=== PATIENT | male | born 1950 | race Two or more races ===

== ENCOUNTER 2016-09-22 18:19 | Inpatient (IN) | payer MEDICARE ==
[~2016-09-22] VITALS: Ht 165.1 cm; Wt 48.1 kg
[2016-09-22] MEDS ORDERED: COMBAER6 INH (18:46)
[2016-09-22 20:26] LABS: BASO % 0.4 % (0.0-1.0); EOS # 0.1 K/mm3 (0.0-0.50); EOS % 2.2 % (0.0-3.0); LARGE UNSTAINED CELL # 0.1 K/mm3 (0.0-0.4); LARGE UNSTAINED CELL % 0.7 % (0.0-4.0); LYMPH # 1.5 K/mm3 (1.5-4.5); LYMPH % 21.9 % (24.0-44.0); MEAN CORPUSCULAR HEMOGLOBIN 33.8 pg (27.0-33.0); MEAN CORPUSCULAR HGB CONC 33.3 g/dl (32.0-36.5); MEAN CORPUSCULAR VOLUME 101.4 fl (80.0-96.0); MONO # 0.3 K/mm3 (0.0-0.8); MONO % 3.9 % (0.0-5.0); NEUTROPHILS # 4.7 K/mm3 (1.8-7.7); NEUTROPHILS % 70.9 % (36.0-66.0); PLATELET COUNT, AUTOMATED 146 k/mm3 (150-450); RED CELL DISTRIBUTION WIDTH 12.4 % (11.5-14.5); WHITE BLOOD COUNT 6.6 K/mm3 (4.0-10.0)
[2016-09-22 20:36] LABS: ALBUMIN 2.4 GM/DL (3.2-5.2); ALKALINE PHOSPHATASE 131 U/L (45-117); ALT/SGPT 24 U/L (12-78); ANION GAP 11 MEQ/L (8-16); AST/SGOT 69 U/L (15-37); BILIRUBIN,DIRECT 0.1 MG/DL (0.0-0.2); BILIRUBIN,TOTAL 0.6 MG/DL (0.2-1.0); BLOOD UREA NITROGEN 5 MG/DL (7-18); CARBON DIOXIDE LEVEL 24 MEQ/L (21-32); CHLORIDE LEVEL 100 MEQ/L (98-107); CREATININE FOR GFR 0.65 MG/DL (0.70-1.30); GLOMERULAR FILTRATION RATE > 60.0 (>49); GLUCOSE, FASTING 111 MG/DL (80-110); POTASSIUM SERUM 3.7 MEQ/L (3.5-5.1); SODIUM LEVEL 135 MEQ/L (136-145); TOTAL PROTEIN 6.4 GM/DL (6.4-8.2)
--- NOTE | 2016-09-22 21:00 | REPUSA ---
Clinical history: Pain, swelling. Findings: The common femoral, superficial femoral, popliteal, and other deep venous structures compre ss normally and demonstrate normal color Doppler flow. Normal venous waveforms with augmentation are seen. Impression: No evidence of deep vein thrombosis in the femoral popliteal venous system.
[2016-09-22] MEDS ORDERED: FUROSEMIDE 20 MG/2 ML VIAL (J1940) IV ONE (23:15)
[2016-09-22] MEDS ORDERED: ISOVUE-370 76% 100ML VIAL (Q9967) As Ordered ONE (23:33)
--- NOTE | 2016-09-22 23:50 | REPUSA ---
CT of the chest with contrast Clinical statement: Pleural effusions. Technique: Multiple axial CT images were obtained with 5 mm cuts through the chest after administrati on of nonionic intravenous contrast. Coronal and sagittal reconstructions were also obtained. Comparison: None. Findings: There is no thoracic lymphadenopathy. The visualized portions of the thyroid gland is unrem arkable. There are no pericardial or pleural effusions. There is moderate bilateral emphysema. Limite d imaging of the upper abdomen does not demonstrate any acute abnormalities. There is a large amount of abdominal ascites. There are no suspicious osseous lesions. Previous old healed right-sided rib fr actures are noted at multiple levels. Mild anterior wedging is noted at T11 and T12. Impression: 1. Moderately severe emphysema and COPD. No acute infiltrates or effusions. 2. Large amount of abdominal ascites. 3. Mild chronic anterior compression abnormalities of T11 and T12.
[2016-09-23] MEDS ORDERED: ACETAMINOPHEN TAB 650MG DOSE (2X325MG) PO PRN (01:45)
[2016-09-23 02:30] VITALS: BP 130/79
[2016-09-23] MEDS: CLINDAMYCIN 300 MG in APPROPRIATE DILUENT 1 EA IV SCH ×3 (03:44→20:55)
[2016-09-23 04:00] VITALS: BP 127/74
[2016-09-23 07:02] LABS: WHITE BLOOD COUNT 6.8 K/mm3 (4.0-10.0)
[2016-09-23 07:03] LABS: MEAN CORPUSCULAR HGB CONC 33.8 g/dl (32.0-36.5); MEAN CORPUSCULAR VOLUME 100.8 fl (80.0-96.0); PLATELET COUNT, AUTOMATED 88 k/mm3 (150-450); RED CELL DISTRIBUTION WIDTH 12.1 % (11.5-14.5)
[2016-09-23 07:04] LABS: BASO % 0.3 % (0.0-1.0); EOS # 0.1 K/mm3 (0.0-0.50); EOS % 1.9 % (0.0-3.0); LARGE UNSTAINED CELL # 0.1 K/mm3 (0.0-0.4); LYMPH # 1.5 K/mm3 (1.5-4.5); LYMPH % 22.4 % (24.0-44.0); MONO # 0.3 K/mm3 (0.0-0.8); MONO % 4.8 % (0.0-5.0); NEUTROPHILS # 4.8 K/mm3 (1.8-7.7); NEUTROPHILS % 69.6 % (36.0-66.0)
[2016-09-23 07:05] LABS: ADD MORPHOLOGY? NO; DIFF SLIDE NUMBER 112
[2016-09-23 07:25] LABS: ALBUMIN 2.4 GM/DL (3.2-5.2); ALBUMIN/GLOBULIN RATIO 0.52 (1.00-1.93); ALKALINE PHOSPHATASE 136 U/L (45-117); ALT/SGPT 23 U/L (12-78); ANION GAP 10 MEQ/L (8-16); AST/SGOT 63 U/L (15-37); BILIRUBIN,TOTAL 1.1 MG/DL (0.2-1.0); BLOOD UREA NITROGEN 4 MG/DL (7-18); CALCIUM LEVEL 7.3 MG/DL (8.8-10.2); CARBON DIOXIDE LEVEL 24 MEQ/L (21-32); CHLORIDE LEVEL 101 MEQ/L (98-107); CREATININE FOR GFR 0.61 MG/DL (0.70-1.30); GLOMERULAR FILTRATION RATE > 60.0 (>49); GLUCOSE, FASTING 117 MG/DL (80-110); POTASSIUM SERUM 4.6 MEQ/L (3.5-5.1); SODIUM LEVEL 135 MEQ/L (136-145)
--- NOTE | 2016-09-23 07:27 | REP ---
PA and lateral chest: There are no comparisons. There are multiple old healed rib fractures bilaterally. There is slight effacement of the right costophrenic angle. This could be a small pleural effusion or pleural adhesion. There is a small focal density adjacent to the cardiac apex and which could represent acute infiltrate or chronic scarring inferiorly in the left lung. Cardiac size is normal. The karla and mediastinum are unremarkable. Bony thorax demonstrates diffuse demineralization and compression deformities of three lower thoracic vertebral bodies. In the absence of comparison studies I cannot determine if these are acute or chronic. Conroy on symptomatology is recommended. Signed by Familia Resendiz MD 09/23/2016 07:18 A
[2016-09-23] MEDS: IPRATROPIUM 0.5MG/ALBUTEROL 2.5MG INH SOL UD 3ML (DUONEB)(J7620) NEB SCH ×2 (07:47→12:00)
[2016-09-23] MEDS ORDERED: FUROSEMIDE 40 MG TAB PO SCH (09:00)
[2016-09-23] MEDS ORDERED: ENOXAPARIN 40 MG/0.4 ML SYRINGE (J1650) SC SCH (09:00)
[2016-09-23] MEDS: PANTOPRAZOLE 40MG TAB (PROTONIX) PO SCH (09:34)
[2016-09-23] MEDS: POTASSIUM CHLORIDE 10 MEQ SR TABLET PO SCH (09:34)
[2016-09-23] MEDS: FUROSEMIDE 40 MG/4 ML VIAL (J1940) IV SCH (09:34)
--- NOTE | 2016-09-23 09:54 | REP ---
Abdominal right upper quadrant ultrasound: There is no Rodríguez's sign to transducer pressure. There is no cholelithiasis, gallbladder wall thickening or pericholecystic fluid. There is no intrahepatic or extrahepatic biliary duct dilatation. The common duct measures 5.8 mm in diameter. The hepatic parenchyma is mildly echogenic compatible with hepato steatosis. There are no focal hepatic masses. The pancreas is obscured by bowel. There is no right renal hydronephrosis, calculus, mass or cyst. Right kidney is normal size measuring 9.3 cm craniocaudad length. Minimal ascites is noted adjacent to the liver. Scanning is technically difficult because of limited ultrasonographic windows. Impression: Small volume of ascites surrounding the liver. Hepato steatosis. The pancreas is obscured. Otherwise, negative abdominal right upper quadrant ultrasound. Signed by Familia Resendiz MD 09/23/2016 09:46 A
[2016-09-23 10:28] LABS: INR 1.03
[2016-09-23 12:00] VITALS: BP 120/64
[2016-09-23] MEDS ORDERED: COMBIVENT RESPIMAT INH PRN (13:00)
--- NOTE | 2016-09-23 13:18 | REP ---
LIMITED ABDOMINAL ULTRASOUND: Limited abdominal ultrasound is performed to evaluate for ascites. There is minimal perihepatic fluid present. No other significant ascites fluid is seen in any of the four quadrants of the abdomen. Paracentesis is not performed as there is not sufficient fluid for drainage. Signed by Familia Regan MD 09/23/2016 05:02 P
[2016-09-23 15:20] VITALS: BP 141/82
--- NOTE | 2016-09-23 17:41 | ECGEPIP ---
Stationary ECG Study [facility] - ED Test Date: 2016-09-22 Pat Name: GLYNN OLIVER Department: Room: [place] [address] Gender: M Master Carpenter: BotelloB: [id number] Requested By: YOGI Person Order Number: [id number] Reading MD: Susan Mcfadden Measurements Intervals [place] Rate: 94 P: 83 ID: [id number] QRS: -11 QRSD: 62 T: 11 QT: 355 QTc: 445 Interpretive Statements SINUS RHYTHM WITH FIRST DEGREE AV BLOCK LOW QRS VOLTAGE IN EXTREMITY LEADS ANTEROSEPTAL MYOCARDIAL INFARCTION, PROBABLY OLD PROLONGED QTC NO OLD ECG FOR COMPARISON Electronically Signed On 09-23-2016 17:40:45 EDT by Susan Mcfadden
[2016-09-23 19:34] VITALS: BP 117/61
--- NOTE | 2016-09-23 20:30 | IPN ---
DATE: 09/23/2016 Patient seen and examined. Overnight reported bilateral lower extremity pain and swelling, the same as before. Denies any chest pain, pressure, discomfort, fevers or chills. No nausea or vomiting. VITAL SIGNS: Temperature 99.1, pulse 190, respirations 18, blood pressure 117/61, pulse oximetry 97% on room air. LABORATORY: WBC 6.8, hemoglobin and hematocrit (H and H) 14/41.9, platelets 88. Sodium 135, potassium 4.6, chloride 101, bicarbonate 24, BUN 4, creatinine 0.6. Cardiac enzymes are negative times two. C-reactive protein 1.4. PHYSICAL EXAMINATION: GENERAL: Patient alert and oriented times three. No acute distress. HEENT: Normocephalic, atraumatic. PULMONARY: Bilateral clear to auscultation. ABDOMEN: Soft, nontender. Positive bowel sounds. EXTREMITIES: Bilateral lower extremities 1+ edema with erythema and pain, scaly skin, with venous stasis skin changes. ASSESSMENT AND PLAN: This is a 66-year-old male patient with underlying medical history of alcohol abuse, chronic obstructive pulmonary disease (COPD), presented with bilateral lower extremity swelling and pain with redness. PROBLEMS: 1. Bilateral lower extremity swelling and pain. Possible etiology includes venous stasis, congestive heart failure (CHF) with possible superimposed cellulitis. Clindamycin, c-reactive protein. Follow up cultures. Diuresis with Lasix. Echocardiogram. Follow right heart pressure. Echocardiogram. Telemetry. Doppler negative for deep venous thrombosis (DVT). 2. Chronic obstructive pulmonary disease (COPD). Patient not having any wheeze. Continue home medication. 3. Acute congestive heart failure (CHF) exacerbation. DATE: 09/23/2016 Patient seen and examined. Overnight reported bilateral lower extremity pain and swelling, the same as before. Denies any chest pain, pressure, discomfort, fevers or chills. No nausea or vomiting. VITAL SIGNS: Temperature 99.1, pulse 190, respirations 18, blood pressure 117/61, pulse oximetry 97% on room air. LABORATORY: WBC 6.8, hemoglobin and hematocrit (H and H) 14/41.9, platelets 88. Sodium 135, potassium 4.6, chloride 101, bicarbonate 24, BUN 4, creatinine 0.6. Cardiac enzymes are negative times two. C-reactive protein 1.4. PHYSICAL EXAMINATION: GENERAL: Patient alert and oriented times three. No acute distress. HEENT: Normocephalic, atraumatic. PULMONARY: Bilateral clear to auscultation. ABDOMEN: Soft, nontender. Positive bowel sounds. EXTREMITIES: Bilateral lower extremities 1+ edema with erythema and pain, scaly skin, with venous stasis skin changes. ASSESSMENT AND PLAN: This is a 66-year-old male patient with underlying medical history of alcohol abuse, chronic obstructive pulmonary disease (COPD), presented with bilateral lower extremity swelling and pain with redness. PROBLEMS: 1. Bilateral lower extremity swelling and pain. Possible etiology includes venous stasis, congestive heart failure (CHF) with possible superimposed cellulitis. Clindamycin, c-reactive protein. Follow up cultures. Diuresis with Lasix. Echocardiogram. Follow right heart pressure. Echocardiogram. Telemetry. Doppler negative for deep venous thrombosis (DVT). 2. Chronic obstructive pulmonary disease (COPD). Patient not having any wheeze. Continue home medication. 3. Acute congestive heart failure (CHF) exacerbation. Unknown ejection fraction. Follow up echocardiograms. Lasix. Telemetry. 4. Alcohol abuse. Monitor for withdrawal. Patient has no signs of withdrawal at this time. Will continue to monitor. 5. Small ascites. Unable to tap. Possibly secondary to alcoholic liver disease. Follow up hepatitis panel. INR appreciated. Counseling provided. 6. Gastroesophageal reflux disease (GERD). Continue proton pump inhibitor (PPI). 7. Deep venous thrombosis (DVT) prophylaxis. Heparin subcutaneously. 8. Thrombocytopenia secondary to underlying liver condition. DISPOSITION: Pending further workup, echocardiogram, clinical improvement.. Follow up echocardiograms. Lasix. Telemetry. 4. Alcohol abuse. Monitor for withdrawal. Patient has no signs of withdrawal at this time. Will continue to monitor. 5. Small ascites. Unable to tap. Possibly secondary to alcoholic liver disease. Follow up hepatitis panel. INR appreciated. Counseling provided. 6. Gastroesophageal reflux disease (GERD). Continue proton pump inhibitor (PPI). 7. Deep venous thrombosis (DVT) prophylaxis. Heparin subcutaneously. 8. Thrombocytopenia secondary to underlying liver condition. DISPOSITION: Pending further workup, echocardiogram, clinical improvement.
[2016-09-23] MEDS: HEPARIN SOD (PORCINE) 5000 UNITS/ML VIAL SQ SCH (21:00)
--- NOTE | 2016-09-23 22:33 | HPE ---
DATE OF ADMISSION: 09/22/2016 CHIEF COMPLAINT: Leg swelling. PRIMARY CARE PROVIDER: He had one in [place], her name was Dr. Delphine Ross. He has currently moved up here to be closer to his family. He has not established with a primary care provider. He went to the urgent care in [facility] today for significant swelling in both his legs and they advised him to go to the emergency room. Upon arrival, his temperature was 99.4, pulse was 105, respiratory rate was 16, blood pressure was 114/71, pulse oximetry was 98% on room air. Laboratory studies were done, sodium was slightly low at 135, potassium 3.7, chloride 100, CO2 24, BUN was 5, creatinine was 0.65, non-fasting glucose was 111, calcium was 7.0, AST was 69, ALT was 24, CPK was 94, troponin was less than 0.02, BNP was 112. Vascular ultrasound was done that showed no evidence of deep vein thrombosis in the femoral popliteal system. He had a chest xray done which showed multiple old healed rib fractures bilaterally, slight effacement of the right costophrenic angle, could be a small pleural effusion or adhesion, cardiac size was normal. He had a chest CT done which showed moderately severe emphysema and chronic obstructive pulmonary disease (COPD), no acute infiltrates or effusion, large amount of abdominal ascites, mild chronic anterior compression abnormalities of T11 and T12. In the emergency room, he received 20 mg of IV Lasix for the edema. Assessment was done. He had bilateral lower extremity edema and redness, swelling bilateral feet, lower legs to just below the knee, no open areas were noted, they were extremely warm to touch. Patient will be admitted for bilateral lower extremity edema, cellulitis, diastolic congestive heart failure (CHF). ALLERGIES: No known allergies. SOCIAL HISTORY: He is single. He is currently up staying with his daughter. Ethyl alcohol (EtOH): He drinks at least two beers per day. He smokes one pack of cigarettes per day. Recreational drug use: None. PAST MEDICAL HISTORY: COPD. PAST SURGICAL HISTORY: Repaired finger fracture of the right hand. HOME MEDICATIONS: - Combivent Respimat one inhalation four times a day as needed for shortness of breath REVIEW OF SYSTEMS: Other than the chronic shortness of breath and leg swelling, which he says he has had for at least six months but continues to get worse and more red, he had no further complaints. PHYSICAL EXAMINATION: 66-year-old cooperative male in no acute distress. Height 65 inches, weight 50 kg, body mass index (BMI) 18.3. The patient was alert and oriented times three. Pupils equal and reactive to light. Extraocular movements intact. Cornea and sclerae clear. Conjunctivae is normal. No facial asymmetry. Pharynx, tongue, gums pink and moist. Tongue is midline. NECK: Supple without lymphadenopathy. No thyromegaly. No goiter. Carotids 2+ without bruit. Jugular venous pressure at clavicle at 60 degrees. CHEST: Decreased breath sounds. No wheeze or retraction. HEART: Regular. ABDOMEN: Benign. Bowel sounds positive. GENITOURINARY/RECTAL: Not done. EXTREMITIES: Show bilateral lower extremity edema from just below the knee all the way through his feet. Peripheral pulses equal and palpable bilaterally. Skin is warm and dry. IMPRESSION/PLAN: Bilateral lower extremity cellulitis. Mild diastolic congestive heart failure (CHF). Admit to the medical floor. IV antibiotics. Diuretics. Further workup on the abdominal ascites. Patient will be admitted as inpatient status. Will require at least two midnights. Will start IV clindamycin and IV Lasix. MTDD
[2016-09-23 23:59] VITALS: BP 115/63
[2016-09-24 04:54] VITALS: BP 111/61
[2016-09-24] MEDS: CLINDAMYCIN 300 MG in APPROPRIATE DILUENT 1 EA IV SCH ×3 (05:05→20:29)
[2016-09-24 05:30] LABS: ALBUMIN 1.8 GM/DL (3.2-5.2); ALBUMIN/GLOBULIN RATIO 0.46 (1.00-1.93); ALKALINE PHOSPHATASE 99 U/L (45-117); ALT/SGPT 19 U/L (12-78); ANION GAP 8 MEQ/L (8-16); AST/SGOT 42 U/L (15-37); BILIRUBIN,DIRECT 0.2 MG/DL (0.0-0.2); BILIRUBIN,TOTAL 0.7 MG/DL (0.2-1.0); BLOOD UREA NITROGEN 4 MG/DL (7-18); CALCIUM LEVEL 7.1 MG/DL (8.8-10.2); CARBON DIOXIDE LEVEL 26 MEQ/L (21-32); CHLORIDE LEVEL 103 MEQ/L (98-107); CREATININE FOR GFR 0.54 MG/DL (0.70-1.30); GLOMERULAR FILTRATION RATE > 60.0 (>49); GLUCOSE, FASTING 90 MG/DL (80-110); MAGNESIUM LEVEL 1.3 MG/DL (1.8-2.4); POTASSIUM SERUM 3.3 MEQ/L (3.5-5.1); SODIUM LEVEL 137 MEQ/L (136-145); TOTAL PROTEIN 5.7 GM/DL (6.4-8.2)
[2016-09-24] MEDS ORDERED: POTASSIUM CHLORIDE 10 MEQ SR TABLET PO ONE (07:00)
[2016-09-24 08:00] VITALS: BP 119/65
[2016-09-24] MEDS: PANTOPRAZOLE 40MG TAB (PROTONIX) PO SCH (08:52)
[2016-09-24] MEDS: MAG SULF 1GM/100ML (MAG RUN) 1 GM in APPROPRIATE DILUENT 1 EA IV SCH ×2 (08:54→10:02)
[2016-09-24] MEDS: HEPARIN SOD (PORCINE) 5000 UNITS/ML VIAL SQ SCH ×2 (08:55→20:29)
[2016-09-24] MEDS: FUROSEMIDE 40 MG/4 ML VIAL (J1940) IV SCH (08:55)
[2016-09-24] MEDS: POTASSIUM CHLORIDE 10 MEQ SR TABLET PO SCH (10:01)
[2016-09-24 12:00] VITALS: BP 113/68
[2016-09-24 16:00] VITALS: BP 111/65
--- NOTE | 2016-09-24 16:56 | IPNPDOC ---
Subjective Date Seen The patient was seen on 09/24/16. Subjective Chief Complaint/HPI The patient is a 66-year-old male admitted with a reason for visit of Diastolic Chf, Bilat Lower Leg Cellulitis. Events since last encounter no acute events overnight, denied cp, abd pain, n/v/diarrhea. Reported LE swelling improved. General: Denies: Chills, Fatigue Constitutional: Denies: Chills, Fever, Malaise Eyes: Denies: Pain, Vision change Skin: Reports: Rash, Breakdown Pulmonary: Denies: Dyspnea, Cough Cardiovascular: Denies: Chest Pain, Palpitations Gastrointestinal: Denies: Nausea, Vomiting, Abdominal Pain, Diarrhea, Constipation Objective Physical Examination General Exam: Positive: Alert, Cooperative, No Acute Distress Eye Exam: Positive: PERRLA, EOMI Neck Exam: Positive: Supple Chest Exam: Positive: Clear to auscultation, Normal air movement Heart Exam: Positive: Rate Normal, Normal S1, Normal S2, Negative: Murmurs Abdomen Exam: Positive: Normal bowel sounds, Soft, Negative: Tenderness Extremity Exam: Positive: Edema (1+ b/l Le with erythema) Assessment /Plan Assessment 66 M h/o of heavy ETOH , COPD, a/w chf unknow EF and cellulitis Problems (1) Bilateral leg edema Problem Text: possible 2/2 to venous statasis vs CHF exacerbation US neg for DVT strict I and O leg elevation lasix, TTE, (2) CHF (congestive heart failure) Problem Text: new CHF ekg tele enzymes negx2 I and O daily weight lasix tte to find EF, likely diastolic (3) Ascites Problem Text: 2/2 to cirrhosis 2/2 to ETOH vs Hep C unable to tap, US abd appreciated (4) Steatosis of liver Problem Text: ETOH cessation counseling providerd hepatitis panel, US abd appreciated INR done (5) GERD (gastroesophageal reflux disease) Problem Text: ppi (6) ETOH abuse Problem Text: folic, thaimine, MVI counseling, monitor for withdrawal (7) Hepatitis C Problem Text: f/u RNA for confirmation outpatient f/u with ID for treatment (8) Thrombocytopenia Problem Text: 2/2 to liver disease con't monitor (9) Bilateral lower leg cellulitis Problem Text: f/u culture c/w clindamycin Plan/VTE VTE Prophylaxis Ordered?: Yes (heparin SQ) Disposition pending TTE, PT and clinical improvement VS, I&O, 24H, Hector Vital Signs/I&O Vital Signs Date Time Temp Pulse Resp B/P (MAP) Pulse Ox O2 Delivery O2 Flow Rate FiO2 09/24/16 16:12 Room Air 09/24/16 12:00 98.7 92 20 113/68 (83) 96 I&O- Last 24 Hours up to 6 AM 09/24/16 05:59 Intake Total 200 ml Output Total 50 ml Balance 150 ml Laboratory Data 24H LABS Laboratory Tests 2 09/24/16 05:01: Anion Gap 8, Glomerular Filtration Rate > 60.0, Calcium Level 7.1L, Magnesium Level 1.3L, Aspartate Amino Transf (AST/SGOT) 42H, Alanine Aminotransferase (ALT /SGPT) 19, Alkaline Phosphatase 99, Total Bilirubin 0.7, Direct Bilirubin 0.2, C -Reactive Protein, Quantitative 1.58H, Total Protein 5.7L, Albumin 1.8#L, Albumin/Globulin Ratio 0.46L CBC/BMP Laboratory Tests 09/24/16 05:01 Microbiology Microbiology 09/23/16 Blood Culture, Received Pending 09/23/16 Blood Culture, Received Pending AYESHA PERRY MD Sep 24, 2016 16:56
[2016-09-24] MEDS: LACTOBACILLUS ACIDOPHILUS CAP (BACID) PO SCH (17:33)
[2016-09-24] MEDS: MULTIVITAMINS/MINERALS THERAP 1 TAB PO SCH (17:34)
[2016-09-24] MEDS: THIAMINE 100 MG TAB PO SCH (17:34)
[2016-09-24] MEDS: FOLIC ACID 1 MG TAB PO SCH (17:34)
[2016-09-24 20:00] VITALS: BP 126/64
[2016-09-24 23:59] VITALS: BP 93/51
[2016-09-25] MEDS: CLINDAMYCIN 300 MG in APPROPRIATE DILUENT 1 EA IV SCH ×3 (03:36→12:51)
[2016-09-25 04:00] VITALS: BP 118/59
[2016-09-25 06:10] LABS: ANION GAP 3 MEQ/L (8-16); BLOOD UREA NITROGEN 5 MG/DL (7-18); CALCIUM LEVEL 7.3 MG/DL (8.8-10.2); CARBON DIOXIDE LEVEL 31 MEQ/L (21-32); CHLORIDE LEVEL 103 MEQ/L (98-107); CREATININE FOR GFR 0.53 MG/DL (0.70-1.30); GLOMERULAR FILTRATION RATE > 60.0 (>49); GLUCOSE, FASTING 110 MG/DL (80-110); MAGNESIUM LEVEL 1.6 MG/DL (1.8-2.4); POTASSIUM SERUM 4.2 MEQ/L (3.5-5.1); SODIUM LEVEL 137 MEQ/L (136-145); T UPTAKE 36 % (33-40); THYROXINE (T4) 6.9 UG/DL (4.5-12.0)
[2016-09-25 08:00] VITALS: BP 124/63
[2016-09-25] MEDS: LACTOBACILLUS ACIDOPHILUS CAP (BACID) PO SCH ×3 (08:31→18:17)
[2016-09-25] MEDS: FOLIC ACID 1 MG TAB PO SCH (08:31)
[2016-09-25] MEDS: THIAMINE 100 MG TAB PO SCH (08:31)
[2016-09-25] MEDS: HEPARIN SOD (PORCINE) 5000 UNITS/ML VIAL SQ SCH ×2 (08:31→21:00)
[2016-09-25] MEDS: MULTIVITAMINS/MINERALS THERAP 1 TAB PO SCH (08:31)
[2016-09-25] MEDS: FUROSEMIDE 40 MG/4 ML VIAL (J1940) IV SCH (08:31)
[2016-09-25] MEDS: LEVOTHYROXINE 25MCG TABLET (0.025MG) PO SCH (08:31)
[2016-09-25] MEDS: PANTOPRAZOLE 40MG TAB (PROTONIX) PO SCH (08:31)
[2016-09-25] MEDS: POTASSIUM CHLORIDE 10 MEQ SR TABLET PO SCH (08:31)
[2016-09-25 12:00] VITALS: BP 120/69
[2016-09-25] MEDS ORDERED: MAG SULF 1GM/100ML (MAG RUN) 1 GM in APPROPRIATE DILUENT 1 EA IV ONE (14:15)
[2016-09-25] MEDS: CLINDAMYCIN 150 MG CAP PO SCH ×2 (15:25→22:08)
[2016-09-25] MEDS: MAGNESIUM OXIDE 400 MG TAB (MAG-OX) PO SCH ×2 (15:38→22:08)
[2016-09-25 16:00] VITALS: BP 135/62
--- NOTE | 2016-09-25 17:15 | IPNPDOC ---
Subjective Date Seen The patient was seen on 09/25/16. Subjective Chief Complaint/HPI The patient is a 66-year-old male admitted with a reason for visit of Diastolic Chf, Bilat Lower Leg Cellulitis. Events since last encounter no acute events overnight, reported LE pain and edema improved. Denied cp, sob, n/v/abd pain. able to ambulated. General: Denies: Chills Constitutional: Denies: Chills, Fever Eyes: Denies: Pain ENT: Denies: Head Aches, Ear Pain Skin: Reports: Rash Pulmonary: Denies: Dyspnea, Cough Cardiovascular: Denies: Chest Pain, Palpitations Gastrointestinal: Denies: Nausea, Vomiting, Abdominal Pain, Diarrhea Hematologic: Reports: Bruising Objective Physical Examination General Exam: Positive: Alert, Cooperative, No Acute Distress Eye Exam: Positive: PERRLA, EOMI Neck Exam: Positive: Supple Chest Exam: Positive: Clear to auscultation, Normal air movement Heart Exam: Positive: Rate Normal, Normal S1, Normal S2, Negative: Murmurs Abdomen Exam: Positive: Normal bowel sounds, Soft, Negative: Tenderness Extremity Exam: Positive: Edema (1+ b/l Le with erythema) Assessment /Plan Assessment 66 M h/o of heavy ETOH , COPD, a/w new chf unknow EF and cellulitis, found to have liver disease due to hepc and ETOH Problems (1) Bilateral leg edema Problem Text: possible 2/2 to venous statasis vs CHF exacerbation US neg for DVT strict I and O leg elevation lasix, TTE, tele monitor initially (2) CHF (congestive heart failure) Problem Text: new CHF ekg tele enzymes negx2 I and O daily weight lasix tte to find EF, likely diastolic (3) Ascites Problem Text: 2/2 to cirrhosis 2/2 to ETOH vs Hep C unable to tap, US abd appreciated (4) Steatosis of liver Problem Text: ETOH cessation counseling providerd hepatitis panel, US abd appreciated INR done hepc antibiody pos, f/u RNA, referral to ID for treatment (5) GERD (gastroesophageal reflux disease) Problem Text: ppi (6) ETOH abuse Problem Text: folic, thaimine, MVI counseling, monitor for withdrawal (7) Hepatitis C Problem Text: f/u RNA for confirmation outpatient f/u with ID for treatment (8) Thrombocytopenia Problem Text: 2/2 to liver disease con't monitor (9) Bilateral lower leg cellulitis Problem Text: f/u culture c/w clindamycin (10) TSH elevation Problem Text: outpatient followup Plan/VTE VTE Prophylaxis Ordered?: Yes (heparin SQ) Disposition PT, TTE, VS, I&O, 24H, Fishbone Vital Signs/I&O Vital Signs Date Time Temp Pulse Resp B/P (MAP) Pulse Ox O2 Delivery O2 Flow Rate FiO2 09/25/16 16:01 Room Air 09/25/16 12:00 98.1 104 20 120/69 (86) 91 I&O- Last 24 Hours up to 6 AM 09/25/16 06:00 Intake Total 1620 ml Output Total 0 ml Balance 1620 ml Laboratory Data 24H LABS Laboratory Tests 2 09/25/16 05:17: Anion Gap 3L, Glomerular Filtration Rate > 60.0, Blood Urea Nitrogen 5L, Creatinine 0.53L, Sodium Level 137, Potassium Level 4.2#, Chloride Level 103, Carbon Dioxide Level 31, Calcium Level 7.3L, Magnesium Level 1.6L, C-Reactive Protein, Quantitative 1.24H, Thyroid Stimulating Hormone (TSH) 8.580H, Free Thyroxine Index 2.5, Thyroxine (T4) 6.9, Triiodothyronine (T3) Uptake 36 CBC/BMP Laboratory Tests 09/25/16 05:17 Calcium Level 7.3 L Microbiology Microbiology 09/23/16 Blood Culture - Preliminary, Resulted No growth after 24 hours . All specim... 09/23/16 Blood Culture - Preliminary, Resulted No growth after 24 hours . All specim... AYESHA PERRY MD Sep 25, 2016 17:15
--- NOTE | 2016-09-25 20:30 | ECHO ---
DATE OF PROCEDURE: 09/24/2016 REFERRING PHYSICIAN: Dr. Mora The study was performed on 09/24/2016 for indication of dyspnea. The patient measures 165 cm and weighs 50 kg. DIMENSIONS: IVS: 0.9 LV: 3.2 LVPW: 0.9 LA: 3.2 Aorta: 3.6 FINDINGS: The study is of fair technical quality. Left ventricle is normal size and hyperdynamic contractility with estimated ejection fraction (EF) 65-70%. Right ventricle does not appear grossly enlarged. Both atria appear grossly normal. Aortic, mitral, tricuspid valves appear normal. Pulmonic valve was not well seen. No pericardial effusion is noted. Inferior vena cava was not seen. Aortic root appears normal. Aortic arch and abdominal aorta were not visualized. Doppler interrogation of aortic valve reveals no stenosis or insufficiency. There is also no mitral stenosis or insufficiency. There is trace tricuspid insufficiency. Calculated pulmonary artery pressure is within normal limits, but the quality of TR jet was poor and I would not consider that reliable. Mitral inflow pattern and tissue Doppler imaging of mitral annulus revealed grade 1 diastolic dysfunction. CONCLUSION: 1. Study is of fair technical quality (poor acoustic windows, only supine exam). 2. Normal LV size with normal LV systolic function and grade 1 diastolic dysfunction. 3. No significant valvular disease. 4. Unable to estimate central venous pressure. 5. Unable to reliably estimate pulmonary artery pressure. COMMENT: Subacute bacterial endocarditis (SBE) prophylaxis is not recommended.
[2016-09-25 22:00] VITALS: BP 94/55
[2016-09-26] MEDS: CLINDAMYCIN 150 MG CAP PO SCH (05:44)
[2016-09-26] MEDS: LEVOTHYROXINE 25MCG TABLET (0.025MG) PO SCH (05:44)
[2016-09-26 06:00] VITALS: BP 106/59
[2016-09-26] MEDS ORDERED: VITMTA PO (07:49)
[2016-09-26] MEDS ORDERED: LASI20TA PO (07:49)
[2016-09-26] MEDS ORDERED: RISATAB3 PO (07:49)
[2016-09-26] MEDS ORDERED: CLEO150C PO (07:49)
[2016-09-26] MEDS ORDERED: FOLI1TAB2 PO (07:49)
[2016-09-26] MEDS ORDERED: MAGN400C3 PO (07:49)
[2016-09-26] MEDS ORDERED: THIA100TA PO (07:49)
[2016-09-26] MEDS ORDERED: FUROSEMIDE 40 MG TAB PO SCH (09:00)
[2016-09-26] MEDS: MAGNESIUM OXIDE 400 MG TAB (MAG-OX) PO SCH (09:22)
[2016-09-26] MEDS: POTASSIUM CHLORIDE 10 MEQ SR TABLET PO SCH (09:22)
[2016-09-26] MEDS: LACTOBACILLUS ACIDOPHILUS CAP (BACID) PO SCH (09:22)
[2016-09-26] MEDS: FOLIC ACID 1 MG TAB PO SCH (09:22)
[2016-09-26] MEDS: PANTOPRAZOLE 40MG TAB (PROTONIX) PO SCH (09:22)
[2016-09-26] MEDS: MULTIVITAMINS/MINERALS THERAP 1 TAB PO SCH (09:22)
[2016-09-26] MEDS: HEPARIN SOD (PORCINE) 5000 UNITS/ML VIAL SQ SCH (09:23)
[2016-09-26] MEDS: THIAMINE 100 MG TAB PO SCH (09:23)
--- NOTE | 2016-09-27 02:10 | DSES ---
DATE OF ADMISSION: 09/22/2016 DATE OF DISCHARGE: 09/26/2016 PRIMARY CARE PROVIDER: Arrangements are made for patient to have a local primary care provider. Previous primary care provider in [place]. INFECTIOUS DISEASE SPECIALIST: Referral made for Dr. Ramirez, infectious disease specialist. FINAL DIAGNOSES: 1. Acute diastolic congestive heart failure with lower extremity cellulitis. 2. Ascites. 3. Cirrhosis. 4. Hepatitis C. 5. Alcohol abuse. 6. Gastroesophageal reflux disease (GERD). 7. Thrombocytopenia. 8. Thyroid-stimulating hormone (TSH) elevation. HISTORY OF PRESENT ILLNESS: This is a 66-year-old male patient with underlying medical history of alcohol abuse, chronic obstructive pulmonary disease (COPD), emphysema, presented with progressively worsening bilateral lower extremity swelling with some redness. Recently just moved from [place]. Also reported some shortness of breath. Denies any fevers, chills, chest pain, pressure or discomfort. Denies history of congestive heart failure (CHF). Denies nausea, vomiting, abdominal pain. Denies lower extremity injury. Reported that swelling has worsened to the extent that patient is having difficulty ambulating. Subsequently, patient is admitted to the hospital. HOSPITAL COURSE: Patient is given diuretics, intravenous (IV) antibiotics, clindamycin for treatment of cellulitis and ultrasound Doppler negative for deep venous thrombosis (DVT). Chest x-ray appreciated. CT of the chest appreciated showing some degree of ascites. Ultrasound Doppler shows the ascites fluid is not drainable, but does show steatosis. Hepatitis C antibody positive. RNA still pending. Alcohol cessation counseling is provided. Withdrawal precautions observed. Patient was diuresed. IV antibiotics were continued. Patient's condition gradually improved. Physical therapy was done. Patient tolerated physical therapy, anxious to be discharged, tolerating oral. Referral was made to infectious disease for put into treatment of hepatitis C. Patient currently tolerating oral, afebrile, ready for discharge for further care. PHYSICAL EXAMINATION: VITAL SIGNS: Temperature 97.4, pulse 90, respirations 18, blood pressure 106/59, pulse oximetry 96% on room air. GENERAL: Patient alert and oriented times three, in no acute distress, frail. HEENT: Normocephalic, atraumatic. PULMONARY: Bilaterally clear to auscultation. CARDIAC: Regular rate and rhythm. Normal S1, S2. ABDOMEN: Soft, nontender, positive bowel sounds. EXTREMITIES: Bilateral lower extremities 1+ edema with erythema that is resolving. LABORATORY: WBC 6.8, hemoglobin and hematocrit 14.1/41.9, platelets 88. Chemistry: Sodium 137, potassium 4.2, chloride 103, bicarbonate 31, BUN 5, creatinine 0.53, magnesium 1.6. C-reactive protein 1.24. TSH 8.58 with free T4 2.5. DISCHARGE MEDICATIONS: - clindamycin 300 mg by mouth three times a day for 5 days - folic acid 1 mg by mouth daily - Lasix 20 mg by mouth daily - magnesium oxide 400 mg by mouth twice a day - multivitamin one tablet by mouth daily - probiotics one tablet by mouth daily - thiamine 100 mg by mouth daily - patient's home medication of Combivent four times a day as needed was continued DISCHARGE INSTRUCTIONS: Patient is instructed to followup with primary care provider in 7 days and instructed to followup with infectious disease in 2-4 weeks. Observe daily weight. Echocardiogram has been done during inpatient showing grade 1 diastolic. Repeat thyroid function tests with primary care provider. Return to the hospital if symptoms worsen.
== END 2016-09-26 10:35 | disposition home or self-care (01) | DRG 602 ==
LOC: M ED 19:38 → M ED INP 19:39 → OBSVTOIN 19:39 → M PCU 09-23 15:13 → M MS5PR 09-25 15:55
PROVIDERS: ADMIT Hospitalist; ATTEND Hospitalist
DX: L03.115 Cellulitis of right lower limb (principal); I50.31 Acute diastolic (congestive) heart failure; R18.8 Other ascites; L03.116 Cellulitis of left lower limb; F10.10 Alcohol abuse, uncomplicated; K21.9 Gastro-esophageal reflux disease without esophagitis; D69.6 Thrombocytopenia, unspecified; K70.30 Alcoholic cirrhosis of liver without ascites; B18.2 Chronic viral hepatitis C; R94.6 Abnormal results of thyroid function studies; J43.9 Emphysema, unspecified; Z79.899 Other long term (current) drug therapy; F17.210 Nicotine dependence, cigarettes, uncomplicated

== ENCOUNTER → 2017-07-24 | Outpatient (CLI) | payer MEDICARE ==
[2017-07-24 15:30] LABS: ALBUMIN 2.1 GM/DL (3.2-5.2); ALBUMIN/GLOBULIN RATIO 0.49 (1.00-1.93); ALKALINE PHOSPHATASE 127 U/L (45-117); ALT/SGPT 24 U/L (12-78); ANION GAP 9 MEQ/L (8-16); AST/SGOT 30 U/L (7-37); BILIRUBIN,DIRECT 0.1 MG/DL (0.0-0.2); BILIRUBIN,TOTAL 0.3 MG/DL (0.2-1.0); BLOOD UREA NITROGEN 40 MG/DL (7-18); CALCIUM LEVEL 7.7 MG/DL (8.8-10.2); CARBON DIOXIDE LEVEL 25 MEQ/L (21-32); CHLORIDE LEVEL 109 MEQ/L (98-107); CREATININE FOR GFR 1.32 MG/DL (0.70-1.30); GLOMERULAR FILTRATION RATE 57.3 (>49); GLUCOSE, FASTING 102 MG/DL (70-100); POTASSIUM SERUM 3.5 MEQ/L (3.5-5.1); SODIUM LEVEL 143 MEQ/L (136-145); TOTAL PROTEIN 6.4 GM/DL (6.4-8.2)
== END ==
LOC: M LAB 14:11
DX: E87.6 Hypokalemia (principal)
CPT/HCPCS: 82248

== ENCOUNTER → 2017-08-04 | Outpatient (CLI) | payer MEDICARE | LOC: M CARPUL 10:38 | DX: R60.9 Edema, unspecified (principal) | CPT/HCPCS: 93306 ==

== ENCOUNTER → 2017-08-14 | Outpatient (CLI) | payer MEDICARE ==
[2017-08-14 15:39] LABS: ANION GAP 8 MEQ/L (8-16); BLOOD UREA NITROGEN 27 MG/DL (7-18); CARBON DIOXIDE LEVEL 27 MEQ/L (21-32); CHLORIDE LEVEL 105 MEQ/L (98-107); CREATININE FOR GFR 1.47 MG/DL (0.70-1.30); GLOMERULAR FILTRATION RATE 50.6 (>49); GLUCOSE, FASTING 111 MG/DL (70-100); MAGNESIUM LEVEL 1.8 MG/DL (1.8-2.4); POTASSIUM SERUM 3.1 MEQ/L (3.5-5.1); SODIUM LEVEL 140 MEQ/L (136-145)
== END ==
LOC: M LAB 14:56
DX: E87.6 Hypokalemia (principal); E83.42 Hypomagnesemia
CPT/HCPCS: 83735

== ENCOUNTER 2017-09-10 10:57 | Inpatient (IN) | payer MEDICARE ==
[2017-09-10 11:44] LABS: BASO % 0.3 % (0.0-1.0); EOS % 0.5 % (0.0-3.0); HEMATOCRIT 30.9 % (42.0-52.0); IMMATURE GRANULOCYTE % 0.5 % (0-3.0); LYMPH # 1.2 10^3/uL (1.5-4.5); LYMPH % 14.1 % (24.0-44.0); MEAN CORPUSCULAR HEMOGLOBIN 34.3 pg (27.0-33.0); MEAN CORPUSCULAR HGB CONC 35.6 g/dl (32.0-36.5); MEAN CORPUSCULAR VOLUME 96.3 fl (80.0-96.0); MONO # 0.6 10^3/uL (0.0-0.8); MONO % 6.4 % (0.0-5.0); NEUTROPHILS # 6.7 10^3/uL (1.8-7.7); NEUTROPHILS % 78.2 % (36.0-66.0); PLATELET COUNT, AUTOMATED 164 10^3/uL (150-450); RED BLOOD COUNT 3.21 10^6/uL (4.30-6.10); RED CELL DISTRIBUTION WIDTH 13.1 % (11.5-14.5); WHITE BLOOD COUNT 8.6 10^3/uL (4.0-10.0)
[2017-09-10 12:10] LABS: INR 1.04; PARTIAL THROMBOPLASTIN TIME 25.8 SECONDS (26.8-37.9); PROTHROMBIN TIME 13.7 SECONDS (12.4-14.5)
[2017-09-10 12:52] LABS: ALBUMIN 1.7 GM/DL (3.2-5.2); ALBUMIN/GLOBULIN RATIO 0.44 (1.00-1.93); ALKALINE PHOSPHATASE 90 U/L (45-117); ALT/SGPT 29 U/L (12-78); ANION GAP 13 MEQ/L (8-16); AST/SGOT 53 U/L (7-37); BILIRUBIN,DIRECT 0.3 MG/DL (0.0-0.2); BILIRUBIN,TOTAL 0.8 MG/DL (0.2-1.0); BLOOD UREA NITROGEN 30 MG/DL (7-18); CALCIUM LEVEL 6.4 MG/DL (8.8-10.2); CARBON DIOXIDE LEVEL 25 MEQ/L (21-32); CHLORIDE LEVEL 99 MEQ/L (98-107); CPK CREATINE PHOSPHOKINASE 456 U/L (39-308); FREE T4 1.14 NG/DL (0.76-1.46); GLOMERULAR FILTRATION RATE 49.4 (>49); GLUCOSE, FASTING 87 MG/DL (70-100); POTASSIUM SERUM 2.4 MEQ/L (3.5-5.1); SODIUM LEVEL 137 MEQ/L (136-145); TOTAL PROTEIN 5.6 GM/DL (6.4-8.2); TROPONIN I 0.02 NG/ML (< 0.10)
[2017-09-10 12:57] LABS: CK-MB VALUE MASS 4.7 NG/ML (<3.6); MB/CK RELATIVE INDEX 1.03 (< OR =4); NT-PRO BNP 2695 PG/ML (<125)
[2017-09-10] MEDS: FUROSEMIDE 100 MG/10 ML VIAL (J1940) IV (13:22)
[2017-09-10] MEDS: KCL 10MEQ/100ML SWI (KRUN) 10 MEQ in APPROPRIATE DILUENT 1 EA IV ×2 (13:23→15:36)
[2017-09-10] MEDS: POTASSIUM CHLORIDE 10 MEQ SR TABLET PO (13:23)
[2017-09-10] MEDS ORDERED: POTASSIUM CHLORIDE 10 MEQ SR TABLET PO ×2 (18:00→18:30)
[2017-09-10] MEDS: NS 500 ML IV (20:00)
[2017-09-11] MEDS ORDERED: ACETAMINOPHEN TAB 650MG DOSE (2X325MG) PO (02:15)
[2017-09-11] MEDS: NS 500 ML IV ×2 (05:08→13:15)
[2017-09-11] MEDS ORDERED: cefTRIAXone SOD 1 GM VIAL (J0696) IM (05:15)
[2017-09-11 05:53] LABS: ANION GAP 10 MEQ/L (8-16); BLOOD UREA NITROGEN 30 MG/DL (7-18); CARBON DIOXIDE LEVEL 27 MEQ/L (21-32); CHLORIDE LEVEL 104 MEQ/L (98-107); CREATININE FOR GFR 1.26 MG/DL (0.70-1.30); GLOMERULAR FILTRATION RATE > 60.0 (>49); GLUCOSE, FASTING 58 MG/DL (70-100); POTASSIUM SERUM 2.3 MEQ/L (3.5-5.1); SODIUM LEVEL 141 MEQ/L (136-145)
[2017-09-11 05:58] LABS: LACTIC ACID SEPSIS PROTOCOL 1.3 MMOL/L (0.4-2.0)
[2017-09-11 06:14] LABS: HEMATOCRIT 28.5 % (42.0-52.0); HEMOGLOBIN 10.2 g/dl (13.5-17.5); MEAN CORPUSCULAR HEMOGLOBIN 34.2 pg (27.0-33.0); MEAN CORPUSCULAR HGB CONC 35.8 g/dl (32.0-36.5); MEAN CORPUSCULAR VOLUME 95.6 fl (80.0-96.0); PLATELET COUNT, AUTOMATED 151 10^3/uL (150-450); RED BLOOD COUNT 2.98 10^6/uL (4.30-6.10); RED CELL DISTRIBUTION WIDTH 13.2 % (11.5-14.5); WHITE BLOOD COUNT 7.9 10^3/uL (4.0-10.0)
[2017-09-11] MEDS: cefTRIAXone SOD 1 GM in D5W MINI-BAG PLUS 50 ML IV (06:23)
[2017-09-11] MEDS: POTASSIUM CHLORIDE 10% LIQ 20 MEQ/15 ML UDC PO (06:23)
[2017-09-11 06:29] LABS: MAGNESIUM LEVEL 1.2 MG/DL (1.8-2.4)
[2017-09-11] MEDS: IPRATROPIUM 0.5MG/ALBUTEROL 2.5MG INH SOL UD 3ML (DUONEB)(J7620) INH (07:10)
[2017-09-11] MEDS: KCL 10MEQ/100ML SWI (KRUN) 10 MEQ in APPROPRIATE DILUENT 1 EA IV (07:57)
[2017-09-11] MEDS: MAG SULF 1GM/100ML (MAG RUN) 1 GM in APPROPRIATE DILUENT 1 EA IV ×2 (07:58→09:48)
[2017-09-11] MEDS: TIOTROPIUM INHALER/CAPSULE (SPIRIVA) INH (08:00)
[2017-09-11] MEDS: MIDODRINE 5 MG TAB PO ×3 (08:32→16:21)
[2017-09-11] MEDS: POTASSIUM CHLORIDE 10 MEQ SR TABLET PO ×2 (08:32→10:13)
[2017-09-11] MEDS ORDERED: FUROSEMIDE 40 MG TAB PO (09:00)
[2017-09-11] MEDS ORDERED: SLF 3 ML SYR IV (11:30)
[2017-09-11] MEDS: IPRATROPIUM 0.5MG/ALBUTEROL 2.5MG INH SOL UD 3ML (DUONEB)(J7620) NEB (11:35)
[2017-09-11] MEDS: SLF 3 ML SYR IV ×2 (12:53→22:00)
[2017-09-11 13:18] LABS: ANION GAP 9 MEQ/L (8-16); BLOOD UREA NITROGEN 28 MG/DL (7-18); CALCIUM LEVEL 6.2 MG/DL (8.8-10.2); CARBON DIOXIDE LEVEL 27 MEQ/L (21-32); CHLORIDE LEVEL 103 MEQ/L (98-107); CREATININE FOR GFR 1.44 MG/DL (0.70-1.30); GLOMERULAR FILTRATION RATE 51.8 (>49); GLUCOSE, FASTING 149 MG/DL (70-100); POTASSIUM SERUM 3.6 MEQ/L (3.5-5.1); SODIUM LEVEL 139 MEQ/L (136-145)
[2017-09-11 14:10] LABS: MAGNESIUM LEVEL 1.7 MG/DL (1.8-2.4)
[2017-09-11 14:28] LABS: ANION GAP 12 MEQ/L (8-16); BLOOD UREA NITROGEN 28 MG/DL (7-18); CARBON DIOXIDE LEVEL 24 MEQ/L (21-32); CHLORIDE LEVEL 104 MEQ/L (98-107); CREATININE FOR GFR 1.43 MG/DL (0.70-1.30); GLOMERULAR FILTRATION RATE 52.2 (>49); GLUCOSE, FASTING 143 MG/DL (70-100); MAGNESIUM LEVEL 1.7 MG/DL (1.8-2.4); POTASSIUM SERUM 3.4 MEQ/L (3.5-5.1); SODIUM LEVEL 140 MEQ/L (136-145)
[2017-09-11] MEDS: FUROSEMIDE 20 MG TAB PO (15:00)
[2017-09-11] MEDS: SPIRONOLACTONE 12.5MG PER 1/2 TABLET PO (15:03)
[2017-09-12] MEDS: cefTRIAXone SOD 1 GM in D5W MINI-BAG PLUS 50 ML IV (05:30)
[2017-09-12] MEDS: SLF 3 ML SYR IV (05:31)
[2017-09-12 05:53] LABS: BASO % 0.3 % (0.0-1.0); EOS # 0.1 10^3/uL (0.0-0.50); EOS % 1.4 % (0.0-3.0); HEMATOCRIT 27.4 % (42.0-52.0); HEMOGLOBIN 9.7 g/dl (13.5-17.5); IMMATURE GRANULOCYTE % 0.5 % (0-3.0); LYMPH # 1.5 10^3/uL (1.5-4.5); LYMPH % 19.9 % (24.0-44.0); MEAN CORPUSCULAR HEMOGLOBIN 34.8 pg (27.0-33.0); MEAN CORPUSCULAR HGB CONC 35.4 g/dl (32.0-36.5); MEAN CORPUSCULAR VOLUME 98.2 fl (80.0-96.0); MONO # 0.5 10^3/uL (0.0-0.8); MONO % 6.7 % (0.0-5.0); NEUTROPHILS # 5.5 10^3/uL (1.8-7.7); NEUTROPHILS % 71.2 % (36.0-66.0); PLATELET COUNT, AUTOMATED 144 10^3/uL (150-450); RED BLOOD COUNT 2.79 10^6/uL (4.30-6.10); RED CELL DISTRIBUTION WIDTH 13.4 % (11.5-14.5); WHITE BLOOD COUNT 7.7 10^3/uL (4.0-10.0)
[2017-09-12 06:07] LABS: ANION GAP 6 MEQ/L (8-16); BLOOD UREA NITROGEN 25 MG/DL (7-18); CALCIUM LEVEL 6.2 MG/DL (8.8-10.2); CARBON DIOXIDE LEVEL 27 MEQ/L (21-32); CHLORIDE LEVEL 110 MEQ/L (98-107); GLOMERULAR FILTRATION RATE > 60.0 (>49); GLUCOSE, FASTING 107 MG/DL (70-100); POTASSIUM SERUM 3.2 MEQ/L (3.5-5.1); SODIUM LEVEL 143 MEQ/L (136-145)
[2017-09-12 07:02] LABS: MAGNESIUM LEVEL 1.7 MG/DL (1.8-2.4)
[2017-09-12 07:31] LABS: AMMONIA 17 uMOL/L (<32)
[2017-09-12] MEDS: TIOTROPIUM INHALER/CAPSULE (SPIRIVA) INH (07:34)
[2017-09-12] MEDS: MIDODRINE 5 MG TAB PO ×3 (08:14→16:13)
[2017-09-12] MEDS: SALMETEROL DISKUS 50MCG INHALER (SEREVENT) INH (09:00)
[2017-09-12] MEDS: SPIRONOLACTONE 12.5MG PER 1/2 TABLET PO (09:30)
[2017-09-12] MEDS: FUROSEMIDE 20 MG TAB PO (09:30)
[2017-09-12] MEDS: MAG SULF 1GM/100ML (MAG RUN) 1 GM in APPROPRIATE DILUENT 1 EA IV ×2 (09:44→11:38)
[2017-09-12] MEDS: POTASSIUM CHLORIDE 10 MEQ SR TABLET PO (09:44)
[2017-09-12] MEDS: MAGNESIUM OXIDE 400 MG TAB (MAG-OX) PO ×2 (09:44→12:33)
[2017-09-12] MEDS: THIAMINE 100 MG TAB PO (09:45)
[2017-09-12] MEDS: FOLIC ACID 1 MG TAB PO (09:45)
[2017-09-12] MEDS: DOXYCYCLINE HYCLATE 100 MG TAB PO ×2 (12:33→21:44)
[2017-09-13] MEDS: SALMETEROL DISKUS 50MCG INHALER (SEREVENT) INH ×3 (00:35→19:29)
[2017-09-13 06:22] LABS: BASO % 0.3 % (0.0-1.0); EOS # 0.2 10^3/uL (0.0-0.50); EOS % 2.1 % (0.0-3.0); HEMATOCRIT 25.4 % (42.0-52.0); HEMOGLOBIN 9.1 g/dl (13.5-17.5); IMMATURE GRANULOCYTE % 0.6 % (0-3.0); LYMPH # 2.1 10^3/uL (1.5-4.5); LYMPH % 29.8 % (24.0-44.0); MEAN CORPUSCULAR HEMOGLOBIN 34.6 pg (27.0-33.0); MEAN CORPUSCULAR HGB CONC 35.8 g/dl (32.0-36.5); MEAN CORPUSCULAR VOLUME 96.6 fl (80.0-96.0); MONO # 0.5 10^3/uL (0.0-0.8); MONO % 7.6 % (0.0-5.0); NEUTROPHILS # 4.2 10^3/uL (1.8-7.7); NEUTROPHILS % 59.6 % (36.0-66.0); PLATELET COUNT, AUTOMATED 150 10^3/uL (150-450); RED BLOOD COUNT 2.63 10^6/uL (4.30-6.10); RED CELL DISTRIBUTION WIDTH 13.7 % (11.5-14.5)
[2017-09-13 06:33] LABS: ANION GAP 6 MEQ/L (8-16); BLOOD UREA NITROGEN 22 MG/DL (7-18); CALCIUM LEVEL 6.3 MG/DL (8.8-10.2); CARBON DIOXIDE LEVEL 26 MEQ/L (21-32); CHLORIDE LEVEL 110 MEQ/L (98-107); CREATININE FOR GFR 0.97 MG/DL (0.70-1.30); GLOMERULAR FILTRATION RATE > 60.0 (>49); GLUCOSE, FASTING 91 MG/DL (70-100); POTASSIUM SERUM 3.5 MEQ/L (3.5-5.1); SODIUM LEVEL 142 MEQ/L (136-145)
[2017-09-13] MEDS: TIOTROPIUM INHALER/CAPSULE (SPIRIVA) INH (07:46)
[2017-09-13] MEDS: IPRATROPIUM 0.5MG/ALBUTEROL 2.5MG INH SOL UD 3ML (DUONEB)(J7620) NEB (07:46)
[2017-09-13] MEDS: POTASSIUM CHLORIDE 10 MEQ SR TABLET PO (08:30)
[2017-09-13] MEDS: DOXYCYCLINE HYCLATE 100 MG TAB PO ×2 (08:30→20:16)
[2017-09-13] MEDS: FUROSEMIDE 20 MG TAB PO (08:30)
[2017-09-13] MEDS: THIAMINE 100 MG TAB PO (08:30)
[2017-09-13] MEDS: MIDODRINE 5 MG TAB PO ×3 (08:30→15:06)
[2017-09-13] MEDS: FOLIC ACID 1 MG TAB PO (08:30)
[2017-09-13] MEDS: MAGNESIUM OXIDE 400 MG TAB (MAG-OX) PO ×2 (08:31→20:16)
[2017-09-13] MEDS: SPIRONOLACTONE 12.5MG PER 1/2 TABLET PO ×2 (08:32→12:43)
[2017-09-14] MEDS: SALMETEROL DISKUS 50MCG INHALER (SEREVENT) INH ×2 (07:45→20:05)
[2017-09-14] MEDS: TIOTROPIUM INHALER/CAPSULE (SPIRIVA) INH (07:45)
[2017-09-14] MEDS: POTASSIUM CHLORIDE 10 MEQ SR TABLET PO (08:26)
[2017-09-14] MEDS: MIDODRINE 5 MG TAB PO ×3 (08:26→15:36)
[2017-09-14] MEDS: THIAMINE 100 MG TAB PO (08:26)
[2017-09-14] MEDS: FOLIC ACID 1 MG TAB PO (08:26)
[2017-09-14] MEDS: FUROSEMIDE 20 MG TAB PO ×2 (08:27→08:33)
[2017-09-14] MEDS: DOXYCYCLINE HYCLATE 100 MG TAB PO ×2 (08:27→20:50)
[2017-09-14] MEDS: SPIRONOLACTONE 25 MG TAB PO (08:27)
[2017-09-14] MEDS: MAGNESIUM OXIDE 400 MG TAB (MAG-OX) PO ×2 (08:28→20:50)
[2017-09-14] MEDS: APIXABAN 5 MG TAB (ELIQUIS) PO ×2 (11:21→20:50)
[2017-09-14 11:33] LABS: BASO % 0.2 % (0.0-1.0); EOS # 0.1 10^3/uL (0.0-0.50); HEMATOCRIT 34.5 % (42.0-52.0); IMMATURE GRANULOCYTE % 0.7 % (0-3.0); LYMPH # 2.2 10^3/uL (1.5-4.5); LYMPH % 24.9 % (24.0-44.0); MEAN CORPUSCULAR HEMOGLOBIN 34.3 pg (27.0-33.0); MEAN CORPUSCULAR HGB CONC 33.3 g/dl (32.0-36.5); MONO # 0.5 10^3/uL (0.0-0.8); NEUTROPHILS # 5.9 10^3/uL (1.8-7.7); NEUTROPHILS % 67.2 % (36.0-66.0); PLATELET COUNT, AUTOMATED 178 10^3/uL (150-450); RED BLOOD COUNT 3.35 10^6/uL (4.30-6.10); RED CELL DISTRIBUTION WIDTH 14.3 % (11.5-14.5); WHITE BLOOD COUNT 8.8 10^3/uL (4.0-10.0)
[2017-09-14 11:43] LABS: HEMOGLOBIN 11.5 g/dl (13.5-17.5)
[2017-09-14 12:14] LABS: ANION GAP 8 MEQ/L (8-16); BLOOD UREA NITROGEN 22 MG/DL (7-18); CALCIUM LEVEL 7.7 MG/DL (8.8-10.2); CARBON DIOXIDE LEVEL 23 MEQ/L (21-32); CHLORIDE LEVEL 106 MEQ/L (98-107); CREATININE FOR GFR 1.22 MG/DL (0.70-1.30); GLOMERULAR FILTRATION RATE > 60.0 (>49); GLUCOSE, FASTING 94 MG/DL (70-100); MAGNESIUM LEVEL 1.7 MG/DL (1.8-2.4); PHOSPHORUS LEVEL 2.7 MG/DL (2.5-4.9); POTASSIUM SERUM 4.9 MEQ/L (3.5-5.1); SODIUM LEVEL 137 MEQ/L (136-145)
[2017-09-14] MEDS: IPRATROPIUM 0.5MG/ALBUTEROL 2.5MG INH SOL UD 3ML (DUONEB)(J7620) NEB (16:33)
[2017-09-15] MEDS: SALMETEROL DISKUS 50MCG INHALER (SEREVENT) INH (08:53)
[2017-09-15] MEDS: TIOTROPIUM INHALER/CAPSULE (SPIRIVA) INH (08:53)
[2017-09-15] MEDS: FUROSEMIDE 20 MG TAB PO (09:31)
[2017-09-15] MEDS: SPIRONOLACTONE 25 MG TAB PO (09:31)
[2017-09-15] MEDS: DOXYCYCLINE HYCLATE 100 MG TAB PO (09:32)
[2017-09-15] MEDS: MAGNESIUM OXIDE 400 MG TAB (MAG-OX) PO (09:32)
[2017-09-15] MEDS: FOLIC ACID 1 MG TAB PO (09:32)
[2017-09-15] MEDS: MIDODRINE 5 MG TAB PO (09:32)
[2017-09-15] MEDS: APIXABAN 5 MG TAB (ELIQUIS) PO (09:32)
[2017-09-15] MEDS: THIAMINE 100 MG TAB PO (09:32)
[2017-09-15] MEDS: ALBUTEROL 90 MCG/ACT 8GM HFA INHALER INH (10:34)
[2017-09-16 00:07] LABS: MAGNESIUM RBC LEVEL 4.9 mg/dL (4.2-6.8)
[2017-09-16 14:16] LABS: ANTI THROMBIN 3 ANTIGEN IMMUNO 70 % (72-124); ANTI THROMBIN 3 FUNCT ACTIVITY 77 % (75-135); PROTEIN C ANTIGEN 54 % (60-150); PROTEIN C FUNCTIONAL ACTIVITY 70 % (73-180); PROTEIN S ANTIGEN FREE 91 % (57-157); PROTEIN S ANTIGEN TOTAL 60 % (60-150); PROTEIN S FUNCTIONAL ACTIVITY 65 % (63-140)
== END 2017-09-15 12:22 | disposition home or self-care (01) | DRG 314 ==
LOC: M PCU 09-11 02:00 → M MSPAV 09-12 14:15 → M ED 10:57 → M ED INP 15:47
DX: I95.9 Hypotension, unspecified (principal); E43 Unspecified severe protein-calorie malnutrition; I82.432 Acute embolism and thrombosis of left popliteal vein; I50.32 Chronic diastolic (congestive) heart failure; E87.6 Hypokalemia; K74.60 Unspecified cirrhosis of liver; J44.9 Chronic obstructive pulmonary disease, unspecified; K21.9 Gastro-esophageal reflux disease without esophagitis; F17.210 Nicotine dependence, cigarettes, uncomplicated; F10.10 Alcohol abuse, uncomplicated; B18.2 Chronic viral hepatitis C; M41.9 Scoliosis, unspecified; Z79.899 Other long term (current) drug therapy; D69.6 Thrombocytopenia, unspecified; E83.42 Hypomagnesemia; R29.6 Repeated falls